=== PATIENT | female | born 1955 | race Caucasian/White ===

== ENCOUNTER 2018-09-06 19:23 | Inpatient (IN) | payer MEDICARE, OTHER ==
[~2018-09-06] VITALS: Ht 162.6 cm; Wt 62.9 kg
[2018-09-06 19:24] VITALS: BP 170/77
[2018-09-06] MEDS ORDERED: POTASSIUM20 PO (19:41)
[2018-09-06] MEDS ORDERED: XARELTO20 MG PO (19:41)
[2018-09-06] MEDS ORDERED: PHENERGAN 25 MG25 M1 (19:41)
[2018-09-06] MEDS ORDERED: ATORVASTATIN CA40 MG PO (19:42)
[2018-09-06] MEDS ORDERED: PLAVIX 75 MG TA75 M1 PO (19:42)
[2018-09-06] MEDS ORDERED: LASIX 20 MG TAB20 MG PO (19:42)
[2018-09-06] MEDS ORDERED: REQUIP 1 MG TABL1 M1 PO (19:43)
[2018-09-06] MEDS ORDERED: NYSTATIN100000 UNI (19:43)
[2018-09-06] MEDS ORDERED: ADVAIR 500-501 EACH INH (19:44)
[2018-09-06] MEDS ORDERED: LOPRESSOR25 (19:44)
[2018-09-06] MEDS ORDERED: IMDUR 60 MG TAB60 M1 PO (19:45)
[2018-09-06] MEDS ORDERED: PROAIR HFA8.5 GM INH (19:45)
[2018-09-06] MEDS ORDERED: SPIRIVA INH (19:47)
[2018-09-06 20:08] LABS: ABSOLUTE EOSINOPHILS 0.3 thou/uL (0.0-0.7); ABSOLUTE LYMPHOCYTES 1.4 thou/uL (0.8-5.3); ABSOLUTE MONOCYTES 0.5 thou/uL (0.0-1.2); ABSOLUTE NEUTROPHILS 4.9 thou/uL (1.6-8.1); BASOPHILS 0.5 %; EOSINOPHILS 3.6 %; HEMATOCRIT 44.8 % (37.0-47.0); HEMOGLOBIN 15.3 gm/dL (12.0-15.0); LYMPHOCYTES 19.3 %; MCH 32.4 pg (26.0-34.0); MCHC 34.1 g/dL (28.0-37.0); MONOCYTES 7.3 %; MPV 7.6 fl. (7.2-11.1); NUCLEATED RBCS 0 /100WBC; PLATELET COUNT* 293 thou/uL (150-400); POLYS 69.3 %; RBC 4.72 mil/uL (4.20-5.00); RDW-CV 13.3 % (10.5-14.5); WBC 7.1 thou/uL (4.0-11.0)
[2018-09-06 20:17] LABS: PROTIME 10.4 Seconds (9.20-11.50)
[2018-09-06 20:23] LABS: BE -0.4 mmol/L (-2 to +3); HCO3 27.1 mmol/L (22.0-26.0); pH 7.308 (7.340-7.450)
[2018-09-06 20:26] LABS: PCO2 55.3 mmHg (35.0-45.0); PO2 360.3 mmHg (75.0-100.0)
[2018-09-06 20:26] LABS: ALBUMIN 3.8 g/dL (3.4-5.0); CALCIUM 9.1 mg/dL (8.5-10.1); CREATININE 1.1 mg/dL (0.6-1.3); POTASSIUM 4.1 mmol/L (3.5-5.1); TOTAL BILIRUBIN 0.5 mg/dL (<0.1-1.0); TOTAL PROTEIN 7.9 g/dL (6.4-8.2); TROPONIN-I LEVEL 0.18 ng/mL (<0.06)
[2018-09-06 20:57] LABS: INFLUENZA A ANTIGEN None Detected (None Detect); INFLUENZA B ANTIGEN None Detected (None Detect)
[2018-09-06 23:50] VITALS: BP 123/71
[2018-09-07 00:09] VITALS: BP 149/68
[2018-09-07 00:53] LABS: URINE BILIRUBIN NEGATIVE (Negative); URINE BLOOD 3+ (Negative); URINE CLARITY CLEAR; URINE COLOR YELLOW; URINE GLUCOSE-RANDOM NEGATIVE (Negative); URINE KETONES NEGATIVE (Negative); URINE LEUKOCYTES-REFLEX NEGATIVE (Negative); URINE PROTEIN TRACE (Negative); URINE UROBILINOGEN 0.2 E.U./dl (0.2-1.0)
[2018-09-07 00:58] LABS: URINE NITRITE-REFLEX POSITIVE (Negative)
[2018-09-07 01:00] LABS: BACTERIA-REFLEX >30 Many /HPF (None Seen); COARSE GRANULAR CASTS 0-3 Few /LPF (None Seen); MUCUS 4-6 Moderate strn/LPF (None Seen); SQUAMOUS 0-3 Few /LPF (0-3); URINE RBC >20 Many /HPF (0-2); URINE WBC-REFLEX 6-15 Few /HPF (0-5); WBC CLUMPS Few (None Seen)
[2018-09-07 01:01] LABS: CRYSTALS None Seen /LPF (None Seen)
[2018-09-07 04:00] VITALS: BP 124/72
[2018-09-07 08:00] VITALS: BP 121/79
[2018-09-07 12:00] VITALS: BP 137/70
--- NOTE | 2018-09-07 13:49 | EKG ---
[place] [address] ELECTROCARDIOGRAM REPORT Name: MARCELINA BENAVIDESLIN Room: [address] ADM IN .R.#: [id number] Admission: 09/06/18 Attend Phys: Escobar Balse MD Discharge: Date of : 57 Report #: [id number] THIS REPORT FOR: //name// [facility] ED Test Date: 2018-09-06 Test Time: 23:05:26 Pat Name: MALISSA BENAVIDES Department: Room: [facility] Gender: F Director Of Finance: Estefanía BLANCHARD : 1955 Requested By: Katina Wise Order Number: [id number] MD: Diego Davies Measurements Intervals [place] Rate: 103 P: 75 [place]: 128 QRS: 60 QRSD: 85 T: 87 QT: 330 QTc: 432 Interpretive Statements Sinus tachycardia Biatrial enlargement Nonspecific T abnormalities, lateral leads No previous ECG available for comparison Electronically Signed On 09-07-2018 13:49:35 POWER GENERATING PLANT OPERATOR by Diego Davies [email or web address] <ELECTRONICALLY SIGNED> By: Diego Davies MD, [facility] 09/07/18 1349 2305 04 Diego Davies MD, FAC /EPI
--- NOTE | 2018-09-07 13:49 | EKG ---
[place] [address] ELECTROCARDIOGRAM REPORT Name: MARCELINA BENAVIDESLIN Room: [address] ADM IN .R.#: [id number] Admission: 09/06/18 Attend Phys: Escobar Bales MD Discharge: Date of : 57 Report #: [id number] THIS REPORT FOR: //name// [facility] ED Test Date: 2018-09-06 Test Time: 19:43:59 Pat Name: MALISSA BENAVIDES Department: Room: [facility] Gender: F Managed Care Liaison: Estefanía BLANCHARD : 1955 Requested By: Katina Wise Order Number: [id number] MD: Diego Davies Measurements Intervals [place] Rate: 115 P: 76 [place]: 134 QRS: 71 QRSD: 83 T: 92 QT: 315 QTc: 436 Interpretive Statements Sinus tachycardia Probable left atrial enlargement Minimal ST depression, inferior leads No previous ECG available for comparison Electronically Signed On 09-07-2018 13:49:16 OYSTER BED WORKER by Diego Davies [email or web address] <ELECTRONICALLY SIGNED> By: Diego Davies MD, [facility] 09/07/18 1349 42 42 Diego Davies MD, FAC /EPI
[2018-09-07 16:00] VITALS: BP 139/77
[2018-09-07 20:00] VITALS: BP 107/57
[2018-09-08] VITALS: BP 102/66
[2018-09-08 02:05] LABS: GLYCOHEMOGLOBIN (HGB A1C) 5.8 % (4.8-5.6)
[2018-09-08 03:56] LABS: HEMATOCRIT 37.7 % (37.0-47.0); MCH 32.9 pg (26.0-34.0); MCHC 34.2 g/dL (28.0-37.0); RBC 3.93 mil/uL (4.20-5.00); RDW-CV 13.4 % (10.5-14.5); WBC 11.2 thou/uL (4.0-11.0)
[2018-09-08 04:00] VITALS: BP 124/64
[2018-09-08 04:02] LABS: HEMOGLOBIN 12.9 gm/dL (12.0-15.0)
[2018-09-08 04:16] LABS: CREATININE 1.2 mg/dL (0.6-1.3); MAGNESIUM 2.3 mg/dL (1.8-2.4); POTASSIUM 5.1 mmol/L (3.5-5.1)
[2018-09-08 07:59] VITALS: BP 140/63
--- NOTE | 2018-09-08 09:49 | CON ---
[address] [address] CONSULTATION Name: MAKAYLAMALISSA Room: [address] IN M.R.#: [id number] Admission: 09/06/18 Attend Phys: Escobar Bales MD Discharge: Date of : 57 Report #: [id number] THIS REPORT FOR: //name// CC: Escobar Dwyer REASON FOR CONSULTATION: Respiratory failure. HISTORY OF PRESENT ILLNESS: This is a 63-year-old female patient with history of COPD. Unfortunately, she continues to smoke around 10 cigarettes per day. She has chronic respiratory failure on nocturnal oxygen, presented to the ER through EMS with shortness of breath. Apparently, when the EMS picked her up, she was tripoding and her O2 saturation was 77% on room air. She was placed on CPAP and brought into the ER. She was in significant distress, she had to be placed on BiPAP. When I saw her this morning, she actually feels a little bit more comfortable. She is still on the BiPAP, tolerating that well. This is her first experience with BiPAP according to her. She told me her symptoms started by nasal discharge, sore throat and what felt like cold symptoms, although she had no fever. Then slowly she started having increasing cough and wheezes. Cough is mostly dry, not producing any sputum. She has no chest pain, no nausea, no vomiting, no fever, no chills, no diaphoresis, no sick contact. PAST MEDICAL HISTORY: History of COPD, chronic respiratory failure on home oxygen. REVIEW OF SYSTEMS: Twelve points reviewed with the patient and negative except those mentioned above. PAST SURGICAL HISTORY: No major chest surgery. HOME MEDICATIONS: She is on Xarelto, promethazine, Lasix, Plavix, propranolol, Advair, metoprolol, Imdur, albuterol, and Spiriva. SOCIAL HISTORY: Unfortunately, she continues to smoke for a long time. She smokes now 10 cigarettes per day, does not drink alcohol excessively, does not abuse drugs. PHYSICAL EXAMINATION: VITAL SIGNS: She was on 35% FiO2 with saturation more than 90%, blood pressure 120/72, breathing around 20-25 times per minute, temperature 36.3, pulse rate of 98. GENERAL: Thin lady, awake, alert BiPAP mask in place, seems to be tolerating that well, answered questions appropriately. HEENT: Head normocephalic, atraumatic. Pupils are reactive to light. . External ears look healthy and normal. Oral cavity not examined because she has BiPAP mask in place. CHEST: Diminished air movement bilateral, prolonged [place]iratory [place] [address] CONSULTATION Name: MALISSA BENAVIDES Room: [address] IN M.R.#: [id number] Admission: 09/06/18 Attend Phys: Escobar Bales MD Discharge: Date of : 57 Report #: [id number] expiratory wheeze. HEART: S1, S2, no murmur. ABDOMEN: Benign, soft, lax, nontender. EXTREMITIES: Lower extremities, no edema, no calf tenderness. SKIN: Normal for age and race, no rash. NEUROLOGIC: Moving 4 extremities spontaneously. No focal weakness. Awake, alert. LYMPHATICS: No palpable lymph node. LABORATORY DATA: Her ABGs, which were done on BiPAP last night, 7.30/55/360. Since then the FiO2 was decreased. Her potassium is 4.2, sodium 142, creatinine 1.1. Her BNP is slightly elevated at 2405. INR of 1. D-dimer was elevated. Her rapid influenza A and B screen was negative. Her chest x-ray did not show acute pathology. CTA of the chest did not show PE, signs of emphysematous changes were noted. IMPRESSION: 1. Acute hypoxic and hypercapnic respiratory failure on chronic. 2. Chronic obstructive pulmonary disease exacerbation. 3. Suspected respiratory virus illness. PLAN: At this point, the patient will be continued on the BiPAP slowly during the daytime. We might give her breaks and monitor her O2 saturation. If she can maintain her O2 saturation on bi-nasal cannula, can start feeding her. Meanwhile, she will be on IV steroids, scheduled nebulization treatments. It was noted she was started back on her Spiriva. Continue her home dose of Lasix, avoid fluid overload, can consider p.r.n. diuresis. Continue BiPAP during sleep and p.r.n. Thank you for the consult. We will do a repeat ABG and chest x-ray. <ELECTRONICALLY SIGNED> By: Taya Jacobs MD 09/08/18 0949 0746 1034Dryan Jacobs MD /nt
[2018-09-08 11:59] VITALS: BP 120/70
--- NOTE | 2018-09-08 12:49 | 2DMMODE ---
[place] [address] 2 D/M-MODE ECHOCARDIOGRAM Name: MALISSA BENAVIDES Room: [address] IN [facility]#: [id number] Admission: 09/06/18 Attend Phys: Escobar Bales, Discharge: Date of : 57 Date of Service: 09/08/18 1249 Report #: [id number] THIS REPORT FOR: //name// APPROVED REPORT Study performed: 09/08/2018 10:32:39 EXAM: Comprehensive 2D, Doppler, and color-flow Echocardiogram Patient Location: In-Patient Room #: [facility] Status: routine BSA: 1.67 HR: 76 bpm BP: 140/63 mmHg Rhythm: NSR Other Information Study Quality: Good Indications Dyspnea Elevated Troponin 2D Dimensions IVSd: 9.74 (7-11mm) LVOT Diam: 20.92 (18-24mm) LVDd: 43.48 mm PWd: 9.62 (7-11mm) Ascending Ao: 34.04 (22-36mm) LVDs: 21.25 (25-40mm) Aortic Root: 26.42 mm Volumes Left Atrial Volume (Systole) LA ESV Index: 25.00 mL/m2 Aortic Valve AoV Peak González.: 1.23 m/s AO Peak Gr.: 6.06 mmHg LVOT Max P.39 mmHg AO Mean Gr.: 3.24 mmHg LVOT Mean P.02 mmHg LVOT Max V: 1.05 m/s AO V2 VTI: 22.21 cm LVOT Mean V: 0.65 m/s TRACY (VTI): 3.17 cm2 LVOT V1 VTI: 20.50 cm Mitral Valve E/A Ratio: 0.72 MV Decel. Time: 254.80 [place] [address] 2 D/M-MODE ECHOCARDIOGRAM Name: MALISSA BENAVIDES Room: [address] IN .#: [id number] Admission: 09/06/18 Attend Phys: Escobar Bales, Discharge: Date of : 57 Date of Service: 09/08/18 1249 Report #: [id number] MV E Max González.: 1.00 m/s MV PHT: 73.89 ms MVA (PHT): 2.98 cm2 TDI E/Lateral E': 12.50 E/Medial E': 10.00 Medial E' González.: 0.10 m/s Lateral E' González.: 0.08 m/s Pulmonary Valve PV Peak González.: 0.89 m/s PV Peak Gr.: 3.16 mmHg Tricuspid Valve RAP Estimate: 5.00 mmHg TR Peak Gr.: 25.58 mmHg RVSP: 30.00 mmHg PA Pressure: 30.00 mmHg Left Ventricle The left ventricle is normal size. There is normal LV segmental wall motion. There is normal left ventricular wall thickness. Left ventricular systolic function is normal. The left ventricular ejection fraction is within the normal range. LVEF is 55-60%. Grade I - abnormal relaxation pattern. Right Ventricle The right ventricle is normal size. The right ventricular systolic function is normal. Atria The left atrium size is normal. The right atrium size is normal. Aortic Valve The aortic valve is normal in structure. No aortic regurgitation is present. There is no aortic valvular stenosis. Mitral Valve Mild mitral annular calcification. Mild mitral regurgitation. No evidence of mitral valve stenosis. Tricuspid Valve The tricuspid valve is normal in structure. Mild tricuspid regurgitation. Borderline pulmonary hypertension. Pulmonic Valve The pulmonary valve is normal in structure. There is no [place] [address] 2 D/M-MODE ECHOCARDIOGRAM Name: MALISSA BENAVIDES Rinku Room: [address]#: [id number] Admission: 09/06/18 Attend Phys: Escobar Bales, Discharge: Date of : 57 Date of Service: 09/08/18 1249 Report #: [id number] valvular regurgitation. Great Vessels The aortic root is normal in size. IVC is normal in size and collapses >50% with inspiration. Pericardium There is no pericardial effusion. <Conclusion> The left ventricle is normal size. There is normal left ventricular wall thickness. Left ventricular systolic function is normal. The left ventricular ejection fraction is within the normal range. LVEF is 55-60%. Grade I - abnormal relaxation pattern. The right ventricle is normal size. The left atrium size is normal. The aortic valve is normal in structure. Mild mitral annular calcification. Mild mitral regurgitation. No evidence of mitral valve stenosis. Mild tricuspid regurgitation. IVC is normal in size and collapses >50% with inspiration. There is no pericardial effusion. There is normal LV segmental wall motion. <ELECTRONICALLY SIGNED> By: Mesfin Talavera MD, FACC 09/08/18 1249 1249 1249 Mesfin Talavera MD, FACC /INF
[2018-09-08 16:00] VITALS: BP 118/56
[2018-09-08 20:00] VITALS: BP 107/57
[2018-09-09] VITALS: BP 121/61
[2018-09-09 04:00] VITALS: BP 131/60
[2018-09-09 05:20] LABS: HEMATOCRIT 35.8 % (37.0-47.0); HEMOGLOBIN 12.3 gm/dL (12.0-15.0); MCHC 34.3 g/dL (28.0-37.0); MCV 96.3 fL (80.0-100.0); MPV 8.2 fl. (7.2-11.1); NUCLEATED RBCS 0 /100WBC; PLATELET COUNT* 259 thou/uL (150-400); RBC 3.72 mil/uL (4.20-5.00); RDW-CV 13.3 % (10.5-14.5); WBC 10.4 thou/uL (4.0-11.0)
[2018-09-09 06:11] LABS: ABSOLUTE LYMPHOCYTES 0.2 thou/uL (0.8-5.3); ABSOLUTE MONOCYTES 0.7 thou/uL (0.0-1.2); ABSOLUTE NEUTROPHILS 9.5 thou/uL (1.6-8.1)
[2018-09-09 06:12] LABS: ANISOCYTOSIS 1+; PLATELET ESTIMATE ADEQUATE; POIKILOCYTOSIS 1+; POLYCHROMASIA Occasional
[2018-09-09 06:19] LABS: CALCIUM 8.8 mg/dL (8.5-10.1); CREATININE 1.1 mg/dL (0.6-1.3); POTASSIUM 4.8 mmol/L (3.5-5.1)
[2018-09-09 08:00] VITALS: BP 143/82
[2018-09-09 12:00] VITALS: BP 160/81
[2018-09-09 15:19] VITALS: BP 110/64
[2018-09-09 20:00] VITALS: BP 142/75
[2018-09-10] VITALS: BP 142/76
[2018-09-10 02:06] LABS: ADENOVIRUS Negative (Negative); INFLUENZA A Negative (Negative); INFLUENZA B Negative (Negative); METAPNEUMOVIRUS Negative (Negative); PARAINFLUENZA 1 Negative (Negative); PARAINFLUENZA 2 Negative (Negative); PARAINFLUENZA 3 Negative (Negative); RHINOVIRUS Negative (Negative); RSV A Negative (Negative); RSV B Negative (Negative)
[2018-09-10 04:00] VITALS: BP 158/85
[2018-09-10 08:00] VITALS: BP 160/81
[2018-09-10 12:00] VITALS: BP 128/66
[2018-09-10 14:53] VITALS: BP 128/66
[2018-09-10] MEDS ORDERED: BENAZEPRIL HCL20 MG PO (14:54)
[2018-09-10] MEDS ORDERED: LOPRESSOR25 PO (14:54)
[2018-09-10] MEDS ORDERED: ESCITALOPRAM OX10 MG PO (14:55)
[2018-09-10] MEDS ORDERED: NEXIUM40 MG PO (14:56)
[2018-09-10] MEDS ORDERED: LEVAQUIN 750 M750 MG PO (14:56)
[2018-09-10] MEDS ORDERED: PREDNISONE 10 M10 MG PO (14:57)
[2018-09-10] MEDS ORDERED: LEXAPRO 10 MG T10 MG PO (15:30)
[2018-09-10 15:32] VITALS: BP 128/66
--- NOTE | 2018-09-12 13:38 | CON ---
[address] [address] CONSULTATION Name: MALISSA BENAVIDES Room: [address]#: [id number] Admission: 09/06/18 Attend Phys: Escobar Bales MD Discharge: 09/10/18 Date of : 57 Report #: [id number] THIS REPORT FOR: //name// CC: Escobar Dwyer DATE OF SERVICE: 09/07/2018 PRIMARY CARE PHYSICIAN: Dr. Sanderson. CURING PRESS OPERATOR: Dr. Dwyer. CHIEF COMPLAINT: Shortness of breath. HISTORY OF PRESENT ILLNESS: The patient is a 63-year-old female with a known history of remote coronary artery disease, presented with marked shortness of breath over the last 1-2 weeks, but progressively worsened and had a critical oxygen saturation of 77% in the Emergency Room. She was able to be treated with BiPAP, oxygen, steroids and antibiotics, and is now clinically stable in this regard. The patient has a history of significant obstructive lung disease and is still a smoker. She does have a history of coronary artery disease status post remote revascularization in the acute setting in 2006. At that time, she had significant angina symptoms and she reports no angina symptoms. Her presenting ECG showed a sinus rhythm, sinus tachycardia with normal ST segments. We are asked to see her because her troponin I was 0.12. She also has a history of thrombosis and a CTA of the chest was negative for pulmonary embolus. PAST MEDICAL HISTORY: Significant for the following: Acute CA in 2006 with placement of intracoronary stent. She is followed regularly by her nursing program chair at [place]. She has a history of chronic obstructive pulmonary disease, thrombosis, DVT, on anticoagulation with a novel agent; active tobacco use, hyperlipidemia, hypertension, no documented history of peripheral vascular disease. HOME MEDICATIONS: Include Xarelto 20 mg daily, potassium chloride 20 mEq daily, Lasix 20 mg daily, Plavix 75 mg daily, atorvastatin 40 mg daily, nystatin, metoprolol XL 25 mg daily, Imdur 60 mg daily. ALLERGIES: [place] [address] CONSULTATION Name: MALISSA BENAVIDES Room: [address]#: [id number] Admission: 09/06/18 Attend Phys: Escobar Bales MD Discharge: 09/10/18 Date of : 57 Report #: [id number] REVIEW OF SYSTEMS: GENERAL: No fevers or chills. PULMONARY: Positive shortness of breath. Positive cough. Positive orthopnea. Positive PND. CARDIOVASCULAR: No chest pain. No palpitations. NEUROLOGIC: No headaches, blurry vision or seizures. SKIN: No rashes. THROAT: Denies any dysphagia. EYES: No loss of vision or visual changes. MOUTH: No history of slurred speech. PHYSICAL EXAMINATION: VITAL SIGNS: Her ECG shows sinus tachycardia with heart rate 150, normal ST segments. Blood pressure this morning is 121/79. She is in a sinus rhythm, on BiPAP on 35% flow with sats 95%. GENERAL: This is a thin, cachectic, elderly woman. She is in no apparent distress though and is conversing with short phrases, but will get dyspneic with longer ones. HEENT: No evidence of facial trauma. Eyes: EOMs intact. No facial asymmetry. NECK: Supple. No jugular venous distention. CARDIOVASCULAR: Regular, heart tones are distant. I cannot hear a murmur. LUNGS: Diminished breath sounds bilaterally. ABDOMEN: Nontender. EXTREMITIES: There is no peripheral edema. There is peripheral wasting. ECG as noted above. LABORATORY DATA: Hemoglobin is 15.2, white blood cell count 7.1, platelet counts 293,000. Sodium is 142, potassium is 4.1, chloride 102, CO2 is 30, BUN is 16, creatinine is 1.1. Troponin I is 0.18, 0.19 and 0.12. INR is 1.0. CTA of the chest shows no evidence of aortic aneurysm dissection, pulmonary artery embolism or any intrathoracic process, chronic lung disease. Chest x-ray shows no cardiovascular infiltrates, COPD changes. IMPRESSION: 1. Abnormal troponin. I suspect this is secondary to her generalized hypoxia versus possibly right heart strain. She does not seem to have any anginal type symptoms, although she has a history of chronic coronary artery disease, which is aggressively treated. I would continue with medical therapy. We will try to obtain records from [facility]. Unless she has angina, I would not pursue a workup. 2. Chronic obstructive pulmonary disease exacerbation. She is being treated aggressively with supplemental oxygen via BiPAP as well as medical therapy as directed by her usual deputy insurance commissioner. 3. Coronary artery disease. She is treated fairly aggressively with Plavix and long-acting nitrates and I would leave her on this therapy without knowing her [address] [address] CONSULTATION Name: MALISSA BENAVIDES Room: [address] IN M.R.#: [id number] Admission: 09/06/18 Attend Phys: Escobar Bales MD Discharge: 09/10/18 Date of : 57 Report #: [id number] exact history. 4. History of deep venous thrombosis. She is on both Plavix and Xarelto, but seems to be tolerating this. I will defer treatment of this with her usual specialist and Dr. Sanderson. <ELECTRONICALLY SIGNED> By: Diego Davies MD, FACC 09/12/18 1338 1115 1329Diego Davies MD, FACC /nt
== END 2018-09-10 16:37 | disposition home or self-care (01) | DRG 871 ==
LOC: M.ERS 19:23 → M.2W 22:34 → M.TBA-ER 22:34 → M.2W 23:33
PROVIDERS: Emergency Medicine; Family Medicine; Internal Medicine; ADMIT Internal Medicine
PROC: 5A09357 Assistance with Respiratory Ventilation, Less than 24 Consecutive Hours, Continuous Positive Airway Pressure (ICD-10-PCS; principal; 2018-09-07)
PROC: 5A09357 Assistance with Respiratory Ventilation, Less than 24 Consecutive Hours, Continuous Positive Airway Pressure (ICD-10-PCS; 2018-09-08)
DX: A41.89 Other specified sepsis (principal); J96.21 Acute and chronic respiratory failure with hypoxia; J96.22 Acute and chronic respiratory failure with hypercapnia; J44.1 Chronic obstructive pulmonary disease with (acute) exacerbation; N39.0 Urinary tract infection, site not specified; E78.5 Hyperlipidemia, unspecified; F41.9 Anxiety disorder, unspecified; I10 Essential (primary) hypertension; I25.10 Atherosclerotic heart disease of native coronary artery without angina pectoris; F17.210 Nicotine dependence, cigarettes, uncomplicated; Z79.899 Other long term (current) drug therapy; Z88.8 Allergy status to other drugs, medicaments and biological substances; Z99.81 Dependence on supplemental oxygen; I25.2 Old myocardial infarction; Z95.5 Presence of coronary angioplasty implant and graft; Z86.718 Personal history of other venous thrombosis and embolism

== ENCOUNTER 2018-11-05 01:59 | Inpatient (IN) | payer MEDICARE, OTHER ==
[~2018-11-05] VITALS: Ht 157.5 cm; Wt 68.0 kg
[2018-11-05 01:59] VITALS: BP 140/74
[~2018-11-05 01:59] MED LIST: ADVAIR 500-501 EACH INH; ATORVASTATIN CA40 MG PO; BENAZEPRIL HCL20 MG PO; ESCITALOPRAM OX10 MG PO; IMDUR 60 MG TAB60 M1 PO; LASIX 20 MG TAB20 MG PO; LEVAQUIN 750 M750 MG PO; LEXAPRO 10 MG T10 MG PO; LOPRESSOR25; LOPRESSOR25 PO; NEXIUM40 MG PO; NYSTATIN100000 UNI; PHENERGAN 25 MG25 M1; PLAVIX 75 MG TA75 M1 PO; POTASSIUM20 PO; PREDNISONE 10 M10 MG PO; PROAIR HFA8.5 GM INH; REQUIP 1 MG TABL1 M1 PO; SPIRIVA INH; XARELTO20 MG PO
[2018-11-05 02:42] LABS: ABSOLUTE BASOPHILS 0.1 thou/uL (0.0-0.2); ABSOLUTE EOSINOPHILS 0.4 thou/uL (0.0-0.7); ABSOLUTE MONOCYTES 0.5 thou/uL (0.0-1.2); ABSOLUTE NEUTROPHILS 3.7 thou/uL (1.6-8.1); BASOPHILS 0.9 %; EOSINOPHILS 5.4 %; HEMATOCRIT 37.8 % (37.0-47.0); HEMOGLOBIN 12.7 gm/dL (12.0-15.0); LYMPHOCYTES 29.7 %; MCH 32.8 pg (26.0-34.0); MCHC 33.5 g/dL (28.0-37.0); MCV 97.9 fL (80.0-100.0); MONOCYTES 7.8 %; MPV 7.7 fl. (7.2-11.1); NUCLEATED RBCS 0 /100WBC; PLATELET COUNT* 307 thou/uL (150-400); POLYS 56.2 %; RBC 3.86 mil/uL (4.20-5.00); RDW-CV 13.9 % (10.5-14.5); WBC 6.6 thou/uL (4.0-11.0)
[2018-11-05 02:55] LABS: INR 1.2; PROTIME 12.4 Seconds (9.20-11.50)
[2018-11-05 03:09] LABS: ALBUMIN 3.4 g/dL (3.4-5.0); ALKALINE PHOSPHATASE 138 U/L (46-116); ANION GAP 6 mmol/L (7-16); BUN 17 mg/dL (7-18); CALCIUM 8.3 mg/dL (8.5-10.1); CHLORIDE 106 mmol/L (98-107); CO2 29 mmol/L (21-32); CREATININE 1.2 mg/dL (0.6-1.3); GLUCOSE 149 mg/dL (70-99); LIPASE 92 U/L (73-393); NT-PRO BRAIN NAT PEPTIDE 48 pg/mL (<300); POTASSIUM 4.5 mmol/L (3.5-5.1); SGOT 19 U/L (15-37); SGPT 35 U/L (30-65); SODIUM 141 mmol/L (136-145); TOTAL BILIRUBIN 0.4 mg/dL (<0.1-1.0); TOTAL PROTEIN 6.7 g/dL (6.4-8.2); TROPONIN-I LEVEL <0.06 ng/mL (<0.06)
[2018-11-05 03:33] LABS: INFLUENZA A ANTIGEN None Detected (None Detect); INFLUENZA B ANTIGEN None Detected (None Detect)
[2018-11-05 04:37] VITALS: BP 109/65
--- NOTE | 2018-11-05 09:44 | EKG ---
[place] [address] ELECTROCARDIOGRAM REPORT Name: MALISSA BENAVIDES Room: [address] ADM IN [facility].#: [id number] Admission: 11/05/18 Attend Phys: Escobar Bales MD Discharge: Date of : 57 Report #: [id number] THIS REPORT FOR: //name// [facility] Test Date: 2018-11-05 Test Time: 02:46:20 Pat Name: MALISSA BENAVIDES Department: Room: [facility] Gender: F Hospital Clerk: [place] : 1955 Requested By: Jakob Walsh Order Number: [id number] MD: Darrick Bryan Measurements Intervals [place] Rate: 99 P: 75 [place]: 139 QRS: 63 QRSD: 93 T: 74 QT: 354 QTc: 455 Interpretive Statements Sinus rhythm Probable left atrial enlargement artifact noted Compared to ECG 09/06/2018 23:05:26 Sinus tachycardia no longer present Electronically Signed On 11-05-2018 9:44:45 CDT by Darrick Bryan [email or web address] <ELECTRONICALLY SIGNED> By: Darrick Bryan MD, [facility] 11/05/18 0944 0246 0246 Darrick Bryan MD, [facility] /EPI
[2018-11-05 09:59] LABS: BE -0.8 mmol/L (-2 to +3); PCO2 33.8 mmHg (35.0-45.0); PO2 104.2 mmHg (75.0-100.0); pH 7.445 (7.340-7.450)
[2018-11-05 15:27] VITALS: BP 139/75
--- NOTE | 2018-11-05 17:26 | NUR ---
VSS-AFEBRILE. LUNGS DIMINISHED IN ALL EDDY BILATERALLY. 3LNC. OOB WITH SBA TO CHAIR. PARTIAL BATH AND LINEN CHANGE. FAIR APPETITE. NO COMPLAINTS OF PAIN. C/O ANXIETY, DECLINES NEED TO CONTACT PHYSICIAN TO REQUEST MEDICATION. CALLS APPROPRIATELY FOR ANY NEEDED ASSISTANCE.
[2018-11-05 20:00] VITALS: BP 122/64
[2018-11-05 23:07] LABS: GLYCOHEMOGLOBIN (HGB A1C) 6.7 % (4.8-5.6)
[2018-11-06] VITALS: BP 146/74
[2018-11-06 02:43] LABS: BE -1.7 mmol/L (-2 to +3); PCO2 39.9 mmHg (35.0-45.0); PO2 80.5 mmHg (75.0-100.0); pH 7.382 (7.340-7.450)
[2018-11-06 04:00] VITALS: BP 138/81
[2018-11-06 04:03] LABS: HEMATOCRIT 32.9 % (37.0-47.0); MCH 33.3 pg (26.0-34.0); MCHC 33.6 g/dL (28.0-37.0); MCV 99.1 fL (80.0-100.0); RBC 3.32 mil/uL (4.20-5.00); RDW-CV 13.7 % (10.5-14.5); WBC 11.6 thou/uL (4.0-11.0)
[2018-11-06 04:30] LABS: ALBUMIN 3.1 g/dL (3.4-5.0); CALCIUM 8.3 mg/dL (8.5-10.1); CREATININE 1.1 mg/dL (0.6-1.3); MAGNESIUM 1.9 mg/dL (1.8-2.4); POTASSIUM 4.2 mmol/L (3.5-5.1); TOTAL BILIRUBIN 0.2 mg/dL (<0.1-1.0); TOTAL PROTEIN 6.1 g/dL (6.4-8.2)
[2018-11-06 07:30] VITALS: BP 148/81
--- NOTE | 2018-11-06 07:57 | NUR ---
Alert and oriented x 4 and anxious. She is up to the bathroom with stand by assist, O2 at 4L n/c. Continuous pulse ox started at 0000 to monitor her sat through the night, regarding order to screen for home cpap or bipap. This am she requested coffee about 2-3 times. She then started yelling saying her stomach was burning, which she attributed to the coffee. She did recieve protonix and norco and she stated it did help. Also around 0430 she jumped up out of bed and said she was having a nose bleed and was up at her sink, both me and [employer] were in there and didn't see any blood. She hasn't slept well. Vitals are stable.
--- NOTE | 2018-11-06 15:52 | NUR ---
SYNOPTIC METEOROLOGIST SPOKE TO SCHEDULING TO INFORM OF THE NEED TO ARRNAGE OUTPATIENT SLEEP STUDY FOR THE PATIENT, AND FAXED THE PATIENT'S FACESHEET, AND ORDER. SCHEDULING TO CONTACT THE PATIENT TO ARRANGE SLEEP STUDY WHEN PATIENT IS DISCHARGED. CM WILL REMAIN AVIALABLE TO ASSIST AND FOLLOW NEEDED.
[2018-11-06 17:04] VITALS: BP 131/71
--- NOTE | 2018-11-06 18:42 | NUR ---
ALERT AND ORIENTED X4. UP AD RENETTA IN ROOM. IV IS PATENT AND SALINE LOCKED. DENIES NEED FOR PAIN MEDICATION. DENIES NEED FOR NAUSEA MEDICATION. TOLERATING DIET. STARTED PATIENT ON METFORMIN TODAY AND EDUCATED HER ON HER LABS AND REASONING BEHIND STARTING THAT MEDICATION. VSS ON 4L O2. HOURLY ROUNDS HAVE BEEN MAINTAINED THROUGHOUT SHIFT. CALL LIGHT IS WITHIN REACH. NURSING WILL CONTINUE TO MONITOR.
[2018-11-06 22:45] VITALS: BP 134/64
[2018-11-07 04:12] LABS: HEMATOCRIT 31.4 % (37.0-47.0); HEMOGLOBIN 10.6 gm/dL (12.0-15.0); MCH 32.9 pg (26.0-34.0); MCHC 33.8 g/dL (28.0-37.0); MCV 97.5 fL (80.0-100.0); MPV 8.2 fl. (7.2-11.1); NUCLEATED RBCS 0 /100WBC; PLATELET COUNT* 251 thou/uL (150-400); RBC 3.21 mil/uL (4.20-5.00); RDW-CV 13.4 % (10.5-14.5); WBC 13.1 thou/uL (4.0-11.0)
[2018-11-07 04:47] LABS: CALCIUM 8.4 mg/dL (8.5-10.1); POTASSIUM 4.5 mmol/L (3.5-5.1)
--- NOTE | 2018-11-07 06:30 | NUR ---
PATIENT HAS SLEPT WELL THROUGHOUT THE NIGHT. VSS ON 4L 02 VIA NASAL CANNULA. NO C/O PAIN. MEDICATIONS GIVEN ORDERED AND CHARTED. IV IN LEFT FOREARM-SL. PATIENT INSTRUCTED TO USE CALL LIGHT WHEN NEEDING ASSISTANCE. HOURLY ROUNDS MADE. WILL CONTINUE WITH PLAN OF CARE AND NURSING TO MONITOR.
[2018-11-07 06:34] LABS: ABSOLUTE LYMPHOCYTES 1.3 thou/uL (0.8-5.3); ABSOLUTE MONOCYTES 0.7 thou/uL (0.0-1.2); ABSOLUTE NEUTROPHILS 11.1 thou/uL (1.6-8.1); ANISOCYTOSIS 1+; PLATELET ESTIMATE ADEQUATE; POIKILOCYTOSIS 1+
[2018-11-07 09:30] VITALS: BP 142/79
--- NOTE | 2018-11-07 14:48 | NUR ---
ASSUMED PATIENT CARE @ 1430. FRIEND @ BEDSIDE. PT INDICATED SHE WAS TIRED, BUT NO C/O PAIN @ THIS TIME. CALL LIGHT WITHIN REACH.
[2018-11-07 17:04] VITALS: BP 119/72
--- NOTE | 2018-11-07 18:56 | NUR ---
PT ALERT AND ORIENTED X 4. RECEIVING OXYGEN @ 4 L/NC. PT DENIES PAIN @ THIS TIME. RECEIVED INSULIN PER SLIDING SCALE THIS EVENING. IV PATENT. HOURLY ROUNDS MAINTAINED. CALL LIGHT WITHIN REACH.
[2018-11-07 20:00] VITALS: BP 112/59
--- NOTE | 2018-11-08 06:30 | NUR ---
PT REMAINED A&Ox4 THROUGHOUT SHIFT. VITALS STABLE. REMAINED ON 4LO2 WITH OX STATS IN 90s. GOT PRN BREATHING TREATMENT AT 0600 FOR UNCONTROLLED COUGHING. OX REMAINED BETWEEN 96-98% BEFORE RESPIRATORY GOT TO HER TREATMENT. NURSE REMAINED IN ROOM. DENIED PAIN. HOURLY ROUNDING COMPLETE. CALL LIGHT WITHIN REACH. WILL CONTINUE TO MONITOR.
--- NOTE | 2018-11-08 07:11 | CON ---
[address] [address] CONSULTATION Name: MALISSA BENAVIDES Room: [address] IN M.R.#: [id number] Admission: 11/05/18 Attend Phys: Escobar Bales MD Discharge: Date of : 57 Report #: [id number] THIS REPORT FOR: //name// CC: Escobar Sanderson DO DATE OF SERVICE: 11/07/2018 ATTENDING PHYSICIAN: Dr. Evelia Woodson. LOCATION: [facility], room 119. HISTORY OF PRESENT ILLNESS: The patient is a 63-year-old female, current smoker, half to one pack a day with severe COPD. The patient was short of breath for 3-5 days prior to admission on 11/05/2018. She was admitted through the Emergency Room. She was taking her nebulizer treatments p.r.n. She still has cough with wheezing. She does not have CO2 retention. She is not a very good sleeper, complains of some loud snoring and occasional restless sleep. She does not have a CPAP or a Trilogy at home. She is not hypercarbic at this time, but does have severe COPD. She is having more problems over the last month or two. Surprisingly, she has only been on oxygen for the last month or two since she was in the hospital last. Some cough with wheezing noted, some scant clear sputum. No fever, chills or sweats. She states she is up-to-date on her flu and pneumonia shot. She denies any sick or ill contacts. PAST MEDICAL HISTORY: COPD, elevated troponins in the past. Mild hypertension. Also, has had some restless legs in the past. She is on chronic anticoagulation for a remote history of DVT and hypertension in the past. ALLERGIES: SHE HAS ALLERGIES OR INTOLERANCES TO KETAMINE, I am not certain exact reaction. OUTPATIENT MEDICATIONS: Included a prednisone taper. She is on IV Solu-Medrol 60 mg IV q. 8 hours; rivaroxaban or Xarelto 20 mg daily; furosemide 20 mg daily; albuterol nebulizers at home 4 times a day followed by Spiriva HandiHaler, inhale 1 capsule daily; Lexapro 10 mg at night; she is on IV ceftriaxone at this time. Also, on Nexium 40 mg daily. She was on metoprolol 25 mg b.i.d. and benazepril 20 mg daily. FAMILY HISTORY: Negative for premature cardiopulmonary disease. SOCIAL HISTORY: The patient is an everyday smoker, smoked about a half pack a day. She has about a 40-50 pack year history of smoking. Denies any alcohol [place] [address] CONSULTATION Name: MALISSA BENAVIDES Room: [address] IN [facility]#: [id number] Admission: 11/05/18 Attend Phys: Escobar Bales MD Discharge: Date of : 57 Report #: [id number] REVIEW OF SYSTEMS: A 14-point review of systems reviewed and negative except for pertinent positives noted in HPI. PHYSICAL EXAMINATION: GENERAL: This is a 63-year-old female with coughing, wheezing, some shortness of breath. She is on 4 liters, sats are 92-93%. VITAL SIGNS: Stable. Blood pressure is 134/64, heart rate is 88, respirations were 16 and temperature is 36.7 degrees. She is 5 feet 4 inches tall, weight 68 kilograms or 148 pounds, BMI is 27. HEENT: Unremarkable. NECK: Supple, without nodes. No increased jugular venous pressure. CHEST: Reveals diminished breath sounds with some use of accessory muscles. Inspiratory and expiratory wheezes noted with prolonged expiratory phase. CARDIOVASCULAR: Shows diminished heart tones, regular rate and rhythm. Heart rate is in the 80s. No S3 is noted. ABDOMEN: Soft, without masses or megaly. EXTREMITIES: No calf tenderness. No cyanosis, clubbing or edema. NEUROLOGIC: Nonfocal and grossly intact. She moves all fours to commands. LABORATORY DATA: From 11/07/2018 shows hemoglobin is 10, white count 13,000, normal differential, platelets 251,000. Sodium is 142, potassium 4.5, carbon dioxide 31, BUN is 25 with a creatinine of 1.0, glucose is 239 and calcium is 8.4. LFTs within normal limits. Albumin is 3.1. ABGs from the and the does not show any CO2 retention. On 11/06/2018 on 4 liters, pO2 was 80, pH 7.38, pCO2 is 40 with a bicarbonate of 23 and a sat of 93%. Previous carboxyhemoglobin has been 0.4, 0.5. No PFTs on this patient. Chest x-ray shows COPD, hyperinflation, pulmonary arteries upper limits of normal. IMPRESSION: 1. Severe chronic obstructive pulmonary disease, oxygen dependent; not steroid dependent yet. No evidence of hypercarbia. 2. Sleep disordered breathing. 3. Hypertension. 4. Remote history of deep venous thrombosis. PLAN: Continue current meds. Add oral bronchodilators. I do not think she is going to qualify for Trilogy at home at this time. We can see about doing an outpatient sleep study and then following up a couple of weeks after that and see if she requires CPAP or BiPAP at home. This may help her COPD somewhat. She needs to discontinue smoking, states it takes 2 hours for her to smoke her first cigarette. I told her to push back to 3 hours and use some Nicorette mini lozenges and see if we can get her off the cigarettes. Absolute smoking cessation is a must and I spent 3 minutes talking to her about this. Overall, prognosis is somewhat guarded since she continues to smoke at this time. We will soon do to help her out and I did encourage her to [place] [address] CONSULTATION Name: MALISSA BENAVIDES Room: [address] IN ..#: [id number] Admission: 11/05/18 Attend Phys: Escobar Bales MD Discharge: Date of : 57 Report #: [id number] rehab at [facility]. I think that will give her some good help with discontinuing smoking and increasing her exercise tolerance. She can barely walk up a flight of stairs. She walks across the room, albeit somewhat slowly. We will continue to follow up with the patient as an inpatient and if she wishes, we can see her as an outpatient with one of our new associates. <ELECTRONICALLY SIGNED> By: Wilbert Anglin MD 11/08/18 0711 0925 [id number] joseline Paula
[2018-11-08 08:00] VITALS: BP 174/81
--- NOTE | 2018-11-08 15:00 | NUR ---
LUIGI/[facility]UD[facility] WAS ABLE TO QUAILFY PT.FOR TRILOGY. SIGNED ORDER AND DID CARE NOTE ON SATURDAY AND WAS FAXED TO CLAUDIO. INFORMED LUIGI PT.MIGHT BE DISCHARGED TOMORROW. SHE SAID POLYGRAPH EXAMINER WILL DELIVER TRILOGY TO PT.S ROOM THIS EVENING
--- NOTE | 2018-11-08 17:35 | NUR ---
ASSUMED CARE OF PATIENT AT APPROX 0730. ALERT AND ORIENTED X4. ASSESSMENT COMPLETED AND CHARTED. VSS ON 4 LITERS 02 VIA TX. PATIENT VERY UPSET THIS MORNING AND ANGRY WITH STAFF THAT PHYSICIAN HAD CHANGED HER DIET TO CARB CONTROLLED/HEART HEALTHY. PATIENT WISHED TO EAT WHATEVER SHE CHOSE, RATHER THAN BE LIMITED, WANTING TO GO HOME. THIS NURSE BROUGHT AMA PAPER TO ROOM FOR PATIENT TO SIGN TO GO HOME AND SHE THEN SAID THAT SHE WANTED TO STAY ANOTHER NIGHT. PHYSICIAN NOTIFIED OF THIS MORNINGS INCIDENCES AND CHANGED HER DIET BACK TO REGULAR. PATIENT HAS HAD NO FURTHER COMPLAINTS THROUGHOUT THE SHIFT. PATIENT UP AD RENETTA AND INSTRUCTED TO USE CALL LIGHT FOR NEEDS. CALL LIGHT PLACED WITHIN REACH. HOURLY ROUNDS COMPLETED. NURSING WILL CONTINUE TO MONITOR.
[2018-11-08 17:36] VITALS: BP 136/96
[2018-11-08 20:00] VITALS: BP 146/73
--- NOTE | 2018-11-09 06:04 | NUR ---
Alert and oriented x 4. She has been quiet all of this shift. She states that she still has been coughing. Her lungs are very diminished and she did have a small wheeze on L upper lobe. She is on 4L n/c and getting breathing treatments. She is up independently to the bathroom. She has slept well.
[2018-11-09 08:10] VITALS: BP 157/76
[2018-11-09] MEDS ORDERED: PREDNISONE 10 M10 MG PO (10:06)
[2018-11-09 10:11] VITALS: BP 157/75
--- NOTE | 2018-11-09 10:49 | NUR ---
ASSUMED CARE OF PATIENT AT APPROX 0730. ALERT AND ORIENTED X4. ASSESSMENT COMPLETED AND CHARTED. VSS ON ROOM AIR. NO COMPLAINTS OF PAIN, NAUSEA, OR SOA. ASSESSMENT COMPLETED AND CHARTED. VSS ON ROOM AIR. RT TREATMENTS ADMINISTERED ORDERED. PATIENT SEEN BY RESPIRTATORY AND CLEARED FOR DISCHARGE. PATIENT DISCHARGED FROM UNIT AT 1048 WITH ALL PERSONAL BELONINGS, PRESCRIPTIONS, TRILOGY MACHINE, AND DISCHARGE INFORMATION PACKET.
== END 2018-11-09 10:48 | disposition home or self-care (01) | DRG 871 ==
LOC: M.ERS 01:59 → M.ORTHSURG 03:34 → M.TBA-ER 03:34 → M.ORTHSURG 05:11
PROVIDERS: Emergency Medicine; Internal Medicine; ADMIT Internal Medicine
DX: A41.9 Sepsis, unspecified organism (principal); J96.21 Acute and chronic respiratory failure with hypoxia; J96.22 Acute and chronic respiratory failure with hypercapnia; J15.9 Unspecified bacterial pneumonia; J44.1 Chronic obstructive pulmonary disease with (acute) exacerbation; J44.0 Chronic obstructive pulmonary disease with (acute) lower respiratory infection; E78.5 Hyperlipidemia, unspecified; F17.210 Nicotine dependence, cigarettes, uncomplicated; I10 Essential (primary) hypertension; I25.10 Atherosclerotic heart disease of native coronary artery without angina pectoris; Z95.5 Presence of coronary angioplasty implant and graft; Z86.718 Personal history of other venous thrombosis and embolism; Z88.8 Allergy status to other drugs, medicaments and biological substances; Z99.81 Dependence on supplemental oxygen

== ENCOUNTER 2018-12-02 02:26 | Inpatient (IN) | payer MEDICARE, OTHER ==
[~2018-12-02] VITALS: Ht 157.5 cm; Wt 68.0 kg
[2018-12-02 02:27] VITALS: BP 134/78
[2018-12-02 02:52] LABS: ABSOLUTE BASOPHILS 0.1 thou/uL (0.0-0.2); ABSOLUTE EOSINOPHILS 0.5 thou/uL (0.0-0.7); ABSOLUTE MONOCYTES 0.6 thou/uL (0.0-1.2); ABSOLUTE NEUTROPHILS 3.7 thou/uL (1.6-8.1); BASOPHILS 0.9 %; EOSINOPHILS 7.8 %; HEMATOCRIT 39.3 % (37.0-47.0); HEMOGLOBIN 13.5 gm/dL (12.0-15.0); LYMPHOCYTES 29.2 %; MCH 33.8 pg (26.0-34.0); MCHC 34.3 g/dL (28.0-37.0); MCV 98.4 fL (80.0-100.0); MONOCYTES 8.2 %; MPV 7.8 fl. (7.2-11.1); NUCLEATED RBCS 0 /100WBC; PLATELET COUNT* 324 thou/uL (150-400); POLYS 53.9 %; RBC 3.99 mil/uL (4.20-5.00); RDW-CV 13.9 % (10.5-14.5); WBC 6.9 thou/uL (4.0-11.0)
[2018-12-02 03:20] LABS: INR 1.1
[2018-12-02 03:43] LABS: ANION GAP 9 mmol/L (7-16); BUN 22 mg/dL (7-18); CALCIUM 8.5 mg/dL (8.5-10.1); CHLORIDE 106 mmol/L (98-107); CO2 27 mmol/L (21-32); GLUCOSE 154 mg/dL (70-99); POTASSIUM 3.9 mmol/L (3.5-5.1); SODIUM 142 mmol/L (136-145); TROPONIN-I LEVEL <0.06 ng/mL (<0.06)
[2018-12-02 03:44] LABS: ALBUMIN 3.4 g/dL (3.4-5.0); ALKALINE PHOSPHATASE 136 U/L (46-116); NT-PRO BRAIN NAT PEPTIDE 54 pg/mL (<300); SGOT 20 U/L (15-37); SGPT 36 U/L (30-65); TOTAL BILIRUBIN 0.4 mg/dL (<0.1-1.0); TOTAL PROTEIN 6.8 g/dL (6.4-8.2)
[2018-12-02 04:28] LABS: BE -1.2 mmol/L (-2 to +3); PCO2 49.3 mmHg (35.0-45.0); pH 7.328 (7.340-7.450)
[2018-12-02 04:30] LABS: PO2 171.2 mmHg (75.0-100.0)
[2018-12-02 07:07] VITALS: BP 122/70
[2018-12-02 10:08] VITALS: BP 122/70
[2018-12-02 10:11] VITALS: BP 122/79
--- NOTE | 2018-12-02 15:54 | EKG ---
[place] [address] ELECTROCARDIOGRAM REPORT Name: MALISSA BENAVIDES Room: [address] ADM IN [facility].#: [id number] Admission: 12/02/18 Attend Phys: Escobar Bales MD Discharge: Date of : 57 Report #: [id number] THIS REPORT FOR: //name// [facility] ED Test Date: 2018-12-02 Test Time: 02:32:38 Pat Name: MALISSA BENAVIDES Department: Room: [facility] Gender: F Load Mixer: : 1955 Requested By: Katina Wise Order Number: [id number] MD: Vincent Hickey Measurements Intervals [place] Rate: 105 P: 86 OR: 141 QRS: 56 QRSD: 106 T: 69 QT: 352 QTc: 466 Interpretive Statements Sinus tachycardia Left atrial enlargement Minimal ST elevation, lateral leads Baseline wander in lead(s) V3 Compared to ECG 11/05/2018 02:46:20 ST (T wave) deviation now present Sinus rhythm no longer present Electronically Signed On 12-02-2018 15:54:22 CDT by Vincent Hickey [email or web address] <ELECTRONICALLY SIGNED> By: Vincent Hickey MD, [facility] 12/02/18 1554 0232 0232 Vincent Hickey MD, [facility] /EPI
[2018-12-02 21:00] VITALS: BP 118/68
[2018-12-03] VITALS: BP 126/61
[2018-12-03 04:37] LABS: URINE BILIRUBIN NEGATIVE (Negative); URINE BLOOD TRACE (Negative); URINE CLARITY CLEAR; URINE COLOR YELLOW; URINE GLUCOSE-RANDOM 3+ (Negative); URINE KETONES NEGATIVE (Negative); URINE LEUKOCYTES-REFLEX NEGATIVE (Negative); URINE NITRITE-REFLEX NEGATIVE (Negative); URINE PROTEIN NEGATIVE (Negative); URINE UROBILINOGEN 0.2 E.U./dl (0.2-1.0)
[2018-12-03 04:53] LABS: MCH 33.3 pg (26.0-34.0); MCHC 33.8 g/dL (28.0-37.0); MCV 98.5 fL (80.0-100.0); MPV 8.1 fl. (7.2-11.1); NUCLEATED RBCS 0 /100WBC; PLATELET COUNT* 271 thou/uL (150-400); RBC 3.45 mil/uL (4.20-5.00); RDW-CV 13.8 % (10.5-14.5); WBC 7.7 thou/uL (4.0-11.0)
[2018-12-03 05:04] VITALS: BP 134/64
[2018-12-03 05:14] LABS: ANION GAP 6 mmol/L (7-16); BUN 20 mg/dL (7-18); CALCIUM 8.5 mg/dL (8.5-10.1); CHLORIDE 107 mmol/L (98-107); CO2 28 mmol/L (21-32); GLUCOSE 316 mg/dL (70-99); SODIUM 141 mmol/L (136-145); TROPONIN-I LEVEL <0.06 ng/mL (<0.06)
[2018-12-03 05:18] LABS: HEMOGLOBIN 11.5 gm/dL (12.0-15.0)
[2018-12-03 05:24] LABS: POTASSIUM 5.1 mmol/L (3.5-5.1)
[2018-12-03 05:43] LABS: NT-PRO BRAIN NAT PEPTIDE 313 pg/mL (<300)
[2018-12-03 07:09] VITALS: BP 141/81
[2018-12-03 09:21] LABS: ABSOLUTE LYMPHOCYTES 0.5 thou/uL (0.8-5.3); ABSOLUTE MONOCYTES 0.2 thou/uL (0.0-1.2); ABSOLUTE NEUTROPHILS 6.9 thou/uL (1.6-8.1); PLATELET ESTIMATE ADEQUATE
[2018-12-03 14:08] VITALS: BP 121/66
[2018-12-03 16:01] VITALS: BP 132/62
[2018-12-03 21:00] VITALS: BP 113/62
[2018-12-04] VITALS: BP 141/78
[2018-12-04 04:33] LABS: ABSOLUTE LYMPHOCYTES 0.5 thou/uL (0.8-5.3); ABSOLUTE MONOCYTES 0.3 thou/uL (0.0-1.2); ABSOLUTE NEUTROPHILS 8.3 thou/uL (1.6-8.1); BASOPHILS 0.1 %; EOSINOPHILS 0.1 %; HEMOGLOBIN 11.8 gm/dL (12.0-15.0); LYMPHOCYTES 5.1 %; MCH 33.1 pg (26.0-34.0); MCHC 33.7 g/dL (28.0-37.0); MONOCYTES 3.2 %; MPV 8.1 fl. (7.2-11.1); NUCLEATED RBCS 0 /100WBC; PLATELET COUNT* 287 thou/uL (150-400); POLYS 91.5 %; RBC 3.57 mil/uL (4.20-5.00); RDW-CV 13.1 % (10.5-14.5); WBC 9.1 thou/uL (4.0-11.0)
[2018-12-04 04:45] LABS: CALCIUM 8.6 mg/dL (8.5-10.1); CREATININE 1.1 mg/dL (0.6-1.3); POTASSIUM 4.3 mmol/L (3.5-5.1)
[2018-12-04 05:14] VITALS: BP 162/77
[2018-12-04 12:00] VITALS: BP 135/76
[2018-12-04 21:15] VITALS: BP 144/78
[2018-12-05 00:10] VITALS: BP 149/75
[2018-12-05 04:10] VITALS: BP 162/84
[2018-12-05 05:01] LABS: ABSOLUTE LYMPHOCYTES 0.5 thou/uL (0.8-5.3); ABSOLUTE MONOCYTES 0.4 thou/uL (0.0-1.2); BASOPHILS 0.1 %; HEMOGLOBIN 11.8 gm/dL (12.0-15.0); MCH 33.2 pg (26.0-34.0); MCHC 33.8 g/dL (28.0-37.0); MCV 98.1 fL (80.0-100.0); MONOCYTES 4.5 %; MPV 8.3 fl. (7.2-11.1); NUCLEATED RBCS 0 /100WBC; PLATELET COUNT* 283 thou/uL (150-400); POLYS 89.4 %; RBC 3.56 mil/uL (4.20-5.00); RDW-CV 13.1 % (10.5-14.5); WBC 7.9 thou/uL (4.0-11.0)
[2018-12-05 05:07] LABS: ALBUMIN 3.1 g/dL (3.4-5.0); CALCIUM 8.5 mg/dL (8.5-10.1); POTASSIUM 4.6 mmol/L (3.5-5.1); TOTAL BILIRUBIN 0.3 mg/dL (<0.1-1.0); TOTAL PROTEIN 6.3 g/dL (6.4-8.2)
[2018-12-05 08:35] VITALS: BP 170/84
[2018-12-05 13:13] VITALS: BP 183/87
[2018-12-05 16:15] VITALS: BP 148/71
--- NOTE | 2018-12-05 17:17 | CARDNUC ---
[place] [address] CARDIAC NUCLEAR IMAGING REPORT Name: MALISSA BENAVIDES Room: [address] IN [facility]#: [id number] Admission: 12/02/18 Attend Phys: Escobar Bales, Discharge: Date of : 57 Date of Service: 12/05/18 1717 Report #: [id number] THIS REPORT FOR: //name// APPROVED REPORT Imaging Protocol: Rest Tc-99m/Stress Tc-99m 1 day Study performed: 12/04/2018 15:02:00 Indication: Dyspnea Patient Location: In-Patient Room #: 305 Stress Tech: Gisele Hdz Stress Nurse: Sandy Billings RN NM Tech:LALI Stephens Ht: 5 ft 2 in Wt: 150 lbs BSA: 1.69 m2 BMI: 27.43 Medical History Medical History: mi, cad, copd, hyperlipidemia, hypertension, pvd Medications: metoprolol, atorvastatin, furosemide, isosorbide, lisinopril, xarelto Allergies: ketamine Cardiac Risk Factors: age, hyperlipidemia, hypertension, pvd, tobacco, family hx Previous Cardiac Procedures: pci Exercise History: Sedentary Meds Held (24 hrs): metoprolol, isosorbide Resting Data Rest SPECT myocardial perfusion imaging was performed in supine position 30 minutes following the intravenous injection of 10.1 mCi of Tc-99m Sestamibi. Time of rest injection: 954 Date: 12/05/2018 The images were gated to evaluate regional wall motion and calculate left ventricular ejection fraction. Administration Route: IV Pharmacologic Stress Pharmacologic stress test was performed by injecting Regadenoson 0.4 mg IV push over 10-15 seconds immediately followed by the intravenous injection of 35.7 mCi of Tc-99m Sestamibi. Time of stress injection: 1124 Administration Route: [place] [address] CARDIAC NUCLEAR IMAGING REPORT Name: MALISSA BENAVIDES Room: [address]#: [id number] Admission: 12/02/18 Attend Phys: Escobar Bales, Discharge: Date of : 57 Date of Service: 12/05/18 1717 Report #: [id number] Gated Stress SPECT was performed 40 minutes after stress injection. The images were gated to evaluate regional wall motion and calculate left ventricular ejection fraction. Stress only was performed in the Supine position. Stress Test Details Stress Test: Pharmacologic stress testing performed using 0.4 mg of regadenoson per 5 mL given IV over 10 seconds. Reason for pharmacologic stress test: physical limitation. HR Max Heart Rate (APMHR): 158 bpm Resting HR: 94 bpm Target HR (85% APMHR): 134 bpm Max HR Achieved: 119 bpm % of APMHR: 75 Recovery HR: 109 bpm BP Resting BP: 178/97 mmHg Max BP: 178/101 mmHg Recovery BP: 177/98 mmHg ECG Resting ECG: Sinus Rhythm Stress ECG: Sinus Tachycardia ST Change: None Arrhythmia: None Recovery ECG: Sinus Rhythm Recovery ST Change: None Recovery Arrhythmia: None Clinical Reason for Termination: Completed protocol Exercise duration: 0 min sec Exercise capacity: 1 METs The patient tolerated Lexiscan infusion without significant symptoms. Nurse Comments pt on continuous. unable to walk on treadmill Stress ECG Conclusion The baseline 12-lead EKG shows sinus rhythm without significant ST or T wave abnormality. EKGs obtained during and post Lexiscan stress show sinus rhythm and sinus tachycardia with no significant ST or T wave changes when compared to baseline. There were no stress[place] [address] CARDIAC NUCLEAR IMAGING REPORT Name: MALISSA BENAVIDES Room: [address]#: [id number] Admission: 12/02/18 Attend Phys: Escobar Bales, Discharge: Date of : 57 Date of Service: 12/05/18 1717 Report #: [id number] Study Quality Study: Good Artifact: Mild Diaphragmatic artifact Study Data At rest, the left ventricular ejection fraction was 71%.. Post stress, the left ventricular ejection was 81%.. TID = 0.91. Perfusion There is mild photopenia involving the inferior wall consistent with diaphragmatic attenuation artifact. No other significant fixed or reversible defects were identified. Wall Motion Normal left ventricular wall motion. Nuclear Conclusion ECG Findings: negative for ischemia Clinical Findings: negative for ischemia Nuclear Findings: negative for ischemia Exercise Capacity: not assessed Left Ventricular Function: normal Risk Study: low Myocardial perfusion images show no defect to suggest infarct or ischemia. Left ventricular systolic function appears normal on gated studies. This is a low risk study. <Conclusion> The baseline 12-lead EKG shows sinus rhythm without significant ST or T wave abnormality. EKGs obtained during and post Lexiscan stress show sinus rhythm and sinus tachycardia with no significant ST or T wave changes when compared to baseline. There were no stress-induced arrhythmias. <ELECTRONICALLY SIGNED> By: Vincent Hickey MD, FACC 12/05/18 171 16 16 Vincent Hickey MD, FACC /INF
[2018-12-05 21:15] VITALS: BP 144/91
[2018-12-06 00:10] VITALS: BP 156/92
[2018-12-06 03:54] LABS: HEMATOCRIT 37.3 % (37.0-47.0); HEMOGLOBIN 12.7 gm/dL (12.0-15.0); MCH 33.5 pg (26.0-34.0); MCHC 34.1 g/dL (28.0-37.0); MCV 98.1 fL (80.0-100.0); MPV 7.9 fl. (7.2-11.1); NUCLEATED RBCS 0 /100WBC; PLATELET COUNT* 283 thou/uL (150-400); RDW-CV 13.3 % (10.5-14.5)
[2018-12-06 04:16] LABS: CALCIUM 8.3 mg/dL (8.5-10.1); POTASSIUM 4.7 mmol/L (3.5-5.1)
[2018-12-06 04:29] VITALS: BP 142/75
[2018-12-06 06:34] LABS: ABSOLUTE MONOCYTES 0.2 thou/uL (0.0-1.2); ABSOLUTE NEUTROPHILS 6.7 thou/uL (1.6-8.1); METAMYELOCYTES 1 %; MYELOCYTES 1 %; PLATELET ESTIMATE ADEQUATE; TOXIC GRANULATION Occasional
[2018-12-06 08:00] VITALS: BP 147/83
[2018-12-06 17:19] VITALS: BP 125/70
[2018-12-06 19:40] VITALS: BP 135/79
[2018-12-06 23:23] VITALS: BP 176/75
[2018-12-07] VITALS (11 sets, daily range): BP systolic 105–175; BP diastolic 59–96
[2018-12-08 03:45] VITALS: BP 160/89
[2018-12-08 08:35] VITALS: BP 154/87
--- NOTE | 2018-12-08 11:08 | EKG ---
[place] [address] ELECTROCARDIOGRAM REPORT Name: MALISSA BENAVIDES Room: [address] ADM IN .R.#: [id number] Admission: 12/02/18 Attend Phys: Escobar Bales MD Discharge: Date of : 57 Report #: [id number] THIS REPORT FOR: //name// [facility] Test Date: 2018-12-07 Test Time: 05:49:20 Pat Name: MALISSA BENAVIDES Department: Room: [address] Gender: F Search Engineer: : [id number] Requested By: Pritesh Nixon Order Number: [id number] Reading MD: Mesfin Talavera Measurements Intervals [place] Rate: 84 P: MS: QRS: 56 QRSD: 87 T: 53 QT: 423 QTc: 501 Interpretive Statements sinus rhythm Nonspecific T abnormalities, inferior leads Prolonged QT interval Compared to ECG 12/02/2018 02:32:38 T-wave abnormality now present Prolonged QT interval now present Sinus tachycardia no longer present Electronically Signed On 12-08-2018 11:08:43 CDT by Mesfin Talavera [email or web address] <ELECTRONICALLY SIGNED> By: Mesfin Talavera MD, [facility] 12/08/18 1108 0549 0549 Mesfin Talavera MD, [facility] /EPI
[2018-12-08 12:14] VITALS: BP 141/86
[2018-12-08] MEDS ORDERED: ZESTRIL40 MG PO (15:28)
--- NOTE | 2018-12-08 15:28 | 2DMMODE ---
[place] [address] 2 D/M-MODE ECHOCARDIOGRAM Name: MALISSA BENAVIDES Room: [address] IN [facility]#: [id number] Admission: 12/02/18 Attend Phys: Escobar Bales, Discharge: Date of : 57 Date of Service: 12/08/18 1528 Report #: [id number] THIS REPORT FOR: //name// APPROVED REPORT Study performed: 12/08/2018 14:33:16 EXAM: Comprehensive 2D, Doppler, and color-flow Echocardiogram Patient Location: In-Patient Room #: [facility] BSA: 1.69 HR: 88 bpm BP: 141/86 mmHg Other Information Study Quality: Good Indications Arrhythmia COPD 2D Dimensions IVSd: 13.58 (7-11mm) LVOT Diam: 20.06 (18-24mm) LVDd: 38.53 mm PWd: 12.29 (7-11mm) Ascending Ao: 29.17 (22-36mm) LVDs: 21.31 (25-40mm) Aortic Root: 22.56 mm Volumes Left Atrial Volume (Systole) LA ESV Index: 16.00 mL/m2 Aortic Valve AoV Peak González.: 0.95 m/s AO Peak Gr.: 3.59 mmHg LVOT Max P.47 mmHg AO Mean Gr.: 2.30 mmHg LVOT Mean P.67 mmHg LVOT Max V: 0.93 m/s AO V2 VTI: 27.13 cm LVOT Mean V: 0.59 m/s TRACY (VTI): 1.91 cm2 LVOT V1 VTI: 16.36 cm Mitral Valve E/A Ratio: 0.60 MV Decel. Time: 254.85 ms MV E Max González.: 0.73 m/[place] [address] 2 D/M-MODE ECHOCARDIOGRAM Name: MALISSA BENAVIDES Room: [address] IN [facility]#: [id number] Admission: 12/02/18 Attend Phys: Escobar Bales, Discharge: Date of : 57 Date of Service: 12/08/18 1528 Report #: [id number] MV PHT: 73.91 ms MVA (PHT): 2.98 cm2 TDI E/Lateral E': 14.60 E/Medial E': 10.43 Medial E' González.: 0.07 m/s Lateral E' González.: 0.05 m/s Pulmonary Valve PV Peak González.: 1.07 m/s PV Peak Gr.: 4.57 mmHg Tricuspid Valve RAP Estimate: 5.00 mmHg TR Peak Gr.: 23.11 mmHg RVSP: 28.11 mmHg PA Pressure: 28.11 mmHg Left Ventricle The left ventricle is normal size. There is normal LV segmental wall motion. There is normal left ventricular wall thickness. Left ventricular systolic function is normal. The left ventricular ejection fraction is within the normal range. LVEF is 65%. Grade I - abnormal relaxation pattern. Right Ventricle The right ventricle is normal size. The right ventricular systolic function is normal. Atria The left atrium size is normal. The right atrium size is normal. Aortic Valve Mild aortic valve sclerosis. No aortic regurgitation is present. There is no aortic valvular stenosis. Mitral Valve Mild mitral annular calcification. Mild mitral regurgitation. No evidence of mitral valve stenosis. Tricuspid Valve The tricuspid valve is normal in structure. Mild tricuspid regurgitation. Pulmonic Valve The pulmonary valve is normal in structure. There is no pulmonic [place] [address] 2 D/M-MODE ECHOCARDIOGRAM Name: MALISSA BENAVIDES Room: [address]#: [id number] Admission: 12/02/18 Attend Phys: Escobar Bales, Discharge: Date of : 57 Date of Service: 12/08/18 1528 Report #: [id number] Great Vessels The aortic root is normal in size. IVC is normal in size and collapses >50% with inspiration. Pericardium There is no pericardial effusion. <Conclusion> The left ventricle is normal size. There is normal left ventricular wall thickness. Left ventricular systolic function is normal. The left ventricular ejection fraction is within the normal range. LVEF is 65%. Grade I - abnormal relaxation pattern. The right ventricle is normal size. The left atrium size is normal. Mild aortic valve sclerosis. No aortic regurgitation is present. There is no aortic valvular stenosis. Mild mitral annular calcification. Mild mitral regurgitation. No evidence of mitral valve stenosis. The tricuspid valve is normal in structure. Mild tricuspid regurgitation. IVC is normal in size and collapses >50% with inspiration. There is no pericardial effusion. There is normal LV segmental wall motion. <ELECTRONICALLY SIGNED> By: Mesfin Talavera MD, FACC 12/08/18 1528 1528 1528 Mesfin Talavera MD, FACC /INF
[2018-12-08] MEDS ORDERED: NICOTINE TRANSD21 M1 (15:31)
[2018-12-08] MEDS ORDERED: MUCINEX600 MG PO (15:32)
[2018-12-08] MEDS ORDERED: KEFLEX500 M1 PO (15:34)
[2018-12-08] MEDS ORDERED: PREDNISONE 10 M10 M1 PO (15:34)
[2018-12-08] MEDS ORDERED: TESSALON PERLE100 MG PO (15:35)
[2018-12-08 15:36] VITALS: BP 141/86
[2018-12-08] MEDS ORDERED: ACETAMINOPHEN325 M1 PO (15:39)
[2018-12-08] MEDS ORDERED: MIRALAX17 GM PO (15:40)
[2018-12-08] MEDS ORDERED: COLACE100 MG PO (15:40)
== END 2018-12-08 16:22 | disposition home or self-care (01) | DRG 177 ==
LOC: M.ERS 02:26 → M.TBA-ER 03:37 → M.ORTHSURG 10:08 → M.3W 16:15
PROVIDERS: Emergency Medicine; Internal Medicine; ADMIT Internal Medicine
PROC: 5A09357 Assistance with Respiratory Ventilation, Less than 24 Consecutive Hours, Continuous Positive Airway Pressure (ICD-10-PCS; principal; 2018-12-02)
PROC: 5A09357 Assistance with Respiratory Ventilation, Less than 24 Consecutive Hours, Continuous Positive Airway Pressure (ICD-10-PCS; 2018-12-03)
PROC: 5A09357 Assistance with Respiratory Ventilation, Less than 24 Consecutive Hours, Continuous Positive Airway Pressure (ICD-10-PCS; 2018-12-04)
PROC: 5A09357 Assistance with Respiratory Ventilation, Less than 24 Consecutive Hours, Continuous Positive Airway Pressure (ICD-10-PCS; 2018-12-05)
PROC: 5A09357 Assistance with Respiratory Ventilation, Less than 24 Consecutive Hours, Continuous Positive Airway Pressure (ICD-10-PCS; 2018-12-06)
PROC: 5A09357 Assistance with Respiratory Ventilation, Less than 24 Consecutive Hours, Continuous Positive Airway Pressure (ICD-10-PCS; 2018-12-07)
DX: J15.6 Pneumonia due to other Gram-negative bacteria (principal); J96.01 Acute respiratory failure with hypoxia; J44.1 Chronic obstructive pulmonary disease with (acute) exacerbation; I48.92 Unspecified atrial flutter; J44.0 Chronic obstructive pulmonary disease with (acute) lower respiratory infection; I25.10 Atherosclerotic heart disease of native coronary artery without angina pectoris; E11.65 Type 2 diabetes mellitus with hyperglycemia; R07.89 Other chest pain; I10 Essential (primary) hypertension; E78.5 Hyperlipidemia, unspecified; F17.210 Nicotine dependence, cigarettes, uncomplicated; Z86.718 Personal history of other venous thrombosis and embolism; Z79.01 Long term (current) use of anticoagulants; Z79.51 Long term (current) use of inhaled steroids; Z79.899 Other long term (current) drug therapy; Z88.8 Allergy status to other drugs, medicaments and biological substances; Z95.5 Presence of coronary angioplasty implant and graft

== ENCOUNTER → 2018-12-16 | Outpatient (CLI) | payer MEDICARE, OTHER ==
[~2018-12-16] MED LIST changes: +ACETAMINOPHEN325 M1 PO; +COLACE100 MG PO; +KEFLEX500 M1 PO; +MIRALAX17 GM PO; +MUCINEX600 MG PO; +NICOTINE TRANSD21 M1; +PREDNISONE 10 M10 M1 PO; +TESSALON PERLE100 MG PO; +ZESTRIL40 MG PO
--- NOTE | 2018-12-17 21:52 | SLEEP ---
[address] [address] SLEEP STUDY REPORT Name: MAKAYLAMALISSA L Room: [facility]#: [id number] Admission: 12/16/18 Attend Phys: Krystian Garcia Discharge: Date of : 57 Report #: [id number] THIS REPORT FOR: //name// CC: Jeferson Sanderson DO This study has been reviewed in its entirety by a board certified sleep specialist DATE OF SERVICE: 12/16/2018 ATTENDING PHYSICIAN: Dr. Jeferson Sanderson. The patient is 63 years old, who weighs 160 pounds with a BMI of 29.3. The patient has severe subjective hypersomnia with an [place] score of 19. The patient has been on Trelegy and also uses oxygen at 4 liters. This study was performed on room air initially. During the night study, the patient spent 455 minutes in bed and slept for 322 minutes with a sleep efficiency of 71%. Sleep latency was 21.6 minutes with a REM latency of 352 minutes. Overall, sleep architecture showed normal stage 1 and stage 2 sleep, increased N3 sleep and reduced REM sleep. During the night study, the patient had no apneas. The patient had 5 hypopneas. The patient's apnea-hypopnea index for the entire night was only 0.9 per hour. There was no significant KORIN observed in either supine or REM sleep. EKG monitoring revealed an average heart rate of 80 beats per minute with a maximum of 94 beats per minute. No sustained arrhythmias observed. Nocturnal oximetry study revealed an average oxygen saturation of 93% with lowest of 86%. A 45 minutes were spent in oxygen saturation of less than 89%. The pattern was related to hypoventilation. Initially, this study was conducted on room air, but then 2 liters of oxygen was added. PLMS were seen at an index of 33 per hour and 8 per hour caused EEG arousals. Due to low AHI, the patient did not qualify for CPAP. IMPRESSION: 1. No clinically significant sleep disorder breathing. The patient's AHI for the entire night was 0.9 per hour. 2. Reduced sleep efficiency resulting from sleep maintenance insomnia. 3. Sustained nocturnal hypoxia suggesting [place]ov[place] [address] SLEEP STUDY REPORT Name: MALISSA BENAVIDES Room: [facility]#: [id number] Admission: 12/16/18 Attend Phys: Krystian Garcia Discharge: Date of : 57 Report #: [id number] placed on 2 liters towards the end of the study. The patient has been on hydrocodone and may be contributing to nocturnal hypoxia. 4. Moderate periodic limb movements in sleep. RECOMMENDATIONS: 1. The patient did not meet the criteria for CPAP initiation. 2. The patient has severe subjective hypersomnia with an [place] score of 19. If the patient is still on hydrocodone, consider reducing the dose or discontinuing the medication to see any clinical improvement. If the patient continues to have hypersomnia, then the patient would need further evaluation such as multiple sleep latency tests to rule out the possibility of narcolepsy or idiopathic hypersomnia. 3. The patient would benefit from 2 liters of oxygen at nighttime. 4. The patient should also be further evaluated for symptoms of restless legs during the day. 5. The patient's insomnia should be further evaluated and treated according to the etiology. <ELECTRONICALLY SIGNED> By: Ketan Doran MD 12/17/18 2152 1132 1215Amika Doran MD /nt
== END ==
LOC: M.SLEEPLAB 19:49
DX: G47.61 Periodic limb movement disorder (principal); G47.34 Idiopathic sleep related nonobstructive alveolar hypoventilation; J44.9 Chronic obstructive pulmonary disease, unspecified; J69.0 Pneumonitis due to inhalation of food and vomit; J96.21 Acute and chronic respiratory failure with hypoxia